=== PATIENT | male | born 1985 | race Caucasian/White ===

== ENCOUNTER 2017-09-04 11:48 | Emergency (ER) | payer BC ==
--- NOTE | 2017-09-04 13:35 | EDM.PDOC ---
ED HPI GENERAL MEDICAL PROBLEM - General Chief Complaint: Abdominal Pain Stated Complaint: STOMACH PAINS Time Seen by Provider: 09/04/17 12:35 Source of Information: Reports: Patient, Family History Limitations: Reports: No Limitations - History of Present Illness INITIAL COMMENTS - FREE TEXT/NARRATIVE: pt arrived with pain in left abdoman and into the left scrotal area. Onset: Today, Sudden Duration: Hour(s): Location: Reports: Abdomen, Other ( left scrotum) Associated Symptoms: Reports: No Other Symptoms Left Lower Abdomen Pain Score (Numeric/FACES): 6 - Related Data Allergies Allergy/AdvReac Type Severity Reaction Status Date / Time cephalexin [From Keflex] Allergy Anaphylactic Verified 09/04/17 12:43 Shock Penicillins Allergy Cannot Verified 09/04/17 12:43 Remember Past Medical History Genitourinary History: Reports: Renal Calculus - Infectious Disease History Infectious Disease History: Reports: Chicken Pox - Past Surgical History Male Surgical History: Reports: Vasectomy, Other (See Below) Other Male Surgeries/Procedures: ercp Musculoskeletal Surgical History: Reports: Arthroscopic Knee, Other (See Below) Other Musculoskeletal Surgeries/Procedures:: hand surgery, shoulder injury Social & Family History - Tobacco Use Smoking Status *Q: Current Every Day Smoker Years of Tobacco use: 15 Packs/Tins Daily: 0.5 - Caffeine Use Caffeine Use: Reports: None - Alcohol Use Days Per Week of Alcohol Use: 1 Number of Drinks Per Day: 3 Total Drinks Per Week: 3 - Recreational Drug Use Recreational Drug Use: No ED ROS GENERAL - Review of Systems Review Of Systems: See Below Constitutional: Reports: No Symptoms HEENT: Reports: No Symptoms Respiratory: Reports: No Symptoms Cardiovascular: Reports: No Symptoms Endocrine: Reports: No Symptoms GI/Abdominal: Reports: Other ( left lower abdoman and left scrotum. ) : Reports: Other ( left scrotal pain. ) Musculoskeletal: Reports: No Symptoms Skin: Reports: No Symptoms Neurological: Reports: No Symptoms Psychiatric: Reports: Anxiety ED EXAM, GI/ABD - Physical Exam Exam: See Below Text/Narrative:: pt arrived with severe pin in the left lower abdoman and down into the testicles. Exam Limited By: No Limitations General Appearance: Alert, Anxious, Moderate Distress Eyes: Bilateral: Normal Appearance, EOMI Ears: Normal TMs Nose: Normal Inspection Throat/Mouth: Normal Inspection Head: Atraumatic Neck: Normal Inspection Respiratory/Chest: No Respiratory Distress Cardiovascular: Regular Rate, Rhythm, Tachycardia GI/Abdominal Exam: Other (pt is tender in the left suprapupic area and this extends to the left testicle. ) (Male) Exam: Other ( pain in the left testicle. ) Rectal (Males) Exam: Deferred Course - Vital Signs Last Recorded V/S: Last Vital Signs Temp 35.9 C 09/04/17 12:27 Pulse 76 09/04/17 12:27 Resp 16 09/04/17 12:27 BP 128/73 09/04/17 12:27 Pulse Ox 97 09/04/17 12:27 - Orders/Labs/Meds Labs: Laboratory Tests 09/04/17 09/04/17 09/04/17 Range/Units 12:52 13:02 13:02 WBC 11.1 H (4.5-11.0) K/uL RBC 5.66 (4.30-5.90) M/uL Hgb 15.3 H (12.0-15.0) g/dL Hct 46.1 (40.0-54.0) % MCV 81 (80-98) fL MCH 27 (27-31) pg MCHC 33 (32-36) % Plt Count 218 (150-400) K/uL Neut % (Auto) 87 H (36-66) % Lymph % (Auto) 7 L (24-44) % [place] % (Auto) 6 (2-6) % Eos % (Auto) 0 L (2-4) % Baso % (Auto) 0 (0-1) % Sodium 139 L (140-148) mmol/L Potassium 3.9 (3.6-5.2) mmol/L Chloride 105 (100-108) mmol/L Carbon Dioxide 26 (21-32) mmol/L Anion Gap 11.9 (5.0-14.0) mmol/L BUN 23 H (7-18) mg/dL Creatinine 1.2 (0.8-1.3) mg/dL Est Cr Clr Drug Dosing 98.95 mL/min Estimated GFR (MDRD) > 60 (>60) Glucose 99 (74-106) mg/dL Calcium 8.8 (8.5-10.1) mg/dL Total Bilirubin 0.4 (0.2-1.0) mg/dL AST 20 (15-37) U/L ALT 34 (12-78) U/L Alkaline Phosphatase 75 (46-116) U/L C-Reactive Protein 0.23 (0.0-0.3) mg/dL Total Protein 7.1 (6.4-8.2) g/dL Albumin 3.9 (3.4-5.0) g/dL Globulin 3.2 (2.3-3.5) g/dL Albumin/Globulin Ratio 1.2 (1.2-2.2) Urine Color Yellow Urine Appearance Clear Urine pH 5.0 (4.5-8.0) Ur Specific [place] 1.020 (1.008-1.030) Urine Protein Negative (NEGATIVE) mg/dL Urine Glucose (UA) Normal (NEGATIVE) mg/dL Urine Ketones Negative (NEGATIVE) mg/dL Urine Occult Blood Negative (NEGATIVE) Urine Nitrite Negative (NEGAITVE) Urine Bilirubin Negative (NEGATIVE) Urine Urobilinogen Normal (NORMAL) mg/dL Ur Leukocyte Esterase Negative (NEGATIVE) Urine RBC 0-5 (0-5) Urine WBC 0-5 (0-5) Ur Epithelial Cells Few Amorphous Sediment Not seen Urine Bacteria Few Urine Mucus Not seen - Re-Assessments/Exams Free Text/Narrative Re-Assessment/Exam: 09/04/17 16:09 us showed a normal testicle, Cat scan of the abdoman was neg. Lab work was normal. Pt was much more comfortable. The pt could have passed a very small stone. 09/10/17 18:17 Departure - Departure Time of Disposition: 16:11 Disposition: Home, Self-Care 01 Condition: Fair Clinical Impression: Left ureteral stone, Dehydration - Discharge Information Instructions: Kidney Stones, [id number], Rehydration, Adult Referrals: PCP,None [Primary Care Provider] - Forms: ED Department Discharge Care Plan Goals: push fluids, rtc if pin should become severe. torodol 10mg q6h prn for pain
--- NOTE | 2017-09-04 14:53 | US ---
Scrotum and Contents INDICATION: Pain in left abdoman and into the left scrotum. FINDINGS: The testicles are normal in size and echogenicity. There is normal color flow to each testi kamla with normal vascular waveform. Epididymides are normal in appearance. Normal sized lymph node in the left groin contains a hypoechoic central portion that is nonspecific. IMPRESSION: 1. Normal testicles bilaterally. 2. Normal-sized lymph node in left groin contains a hypoechoic central portion and is nonspecific. Re commend follow-up clinical exam.
--- NOTE | 2017-09-04 15:02 | US ---
Scrotum and Contents INDICATION: Pain in left abdoman and into the left scrotum. FINDINGS: The testicles are normal in size and echogenicity. There is normal color flow to each testicle with normal vascular waveform. Epididymides are normal in appearance. Normal sized lymph node in the left groin contains a hypoechoic central portion that is nonspecific. IMPRESSION: 1. Normal testicles bilaterally. 2. Normal-sized lymph node in left groin contains a hypoechoic central portion and is nonspecific. Recommend follow-up clinical exam.
== END 2017-09-04 16:20 | disposition home or self-care (01) ==
LOC: JP.ED 11:48
DX: N20.1 Calculus of ureter (principal); E86.0 Dehydration; F17.210 Nicotine dependence, cigarettes, uncomplicated; Z88.0 Allergy status to penicillin; Z88.1 Allergy status to other antibiotic agents
CPT/HCPCS: 36415; 74176; 76870; 76870-26; 80053; 81001; 85025; 86140; 93976; 93976-26; 99284-25

== ENCOUNTER 2020-02-20 06:34 | Day surgery (SDC) | payer BC ==
[2020-02-20] MEDS ORDERED: Sodium Chloride 0.9% 1,000 ML IV SCH (07:15)
[2020-02-20] MEDS ORDERED: Midazolam 1 MG/ML 2 ML SDV ONE (07:21)
[2020-02-20] MEDS ORDERED: fentaNYL 100 MCG/2 ML SDV ONE (07:21)
[2020-02-20] MEDS ORDERED: Propofol 200 MG/20 ML SDV ONE ×2 (07:21→07:53)
[2020-02-20] MEDS ORDERED: Lidocaine 1% 2 ML ONE (11:35)
--- NOTE | 2020-02-23 07:45 | OR ---
DATE OF PROCEDURE: 02/20/2020 SURGEON: Yang Silva MD PROCEDURE: Colonoscopy. FINDINGS: 1. Mild inflammation of hemorrhoids. 2. Diverticulosis, mild, with no evidence of diverticulitis. 3. Small polyp in descending colon, completely removed using hot snare wire. COMPLICATIONS: None. CHIEF LEGAL OFFICER: None. ANESTHESIA: MAC. PREOPERATIVE DIAGNOSIS: Rectal bleeding. POSTOPERATIVE DIAGNOSIS: Rectal bleeding. RISKS: Risks, benefits, alternatives, and limitations include, but not limited to infection, bleeding, and perforation. PROCEDURE IN DETAIL: The patient was placed in the left lateral decubitus position. The patient did have some mildly prominent hemorrhoids, which were inflamed, but not actively bleeding. The scope was introduced and advanced atraumatically to the ileocecal valve. A photo was taken. The scope was brought back through the ascending, transverse, descending colon, and retroflexed. The patient had a small polyp, which was completely removed as described above. The patient did have diverticulosis, which would be described as mild, limited to the sigmoid colon, and without evidence of diverticulitis or bleeding. No other abnormalities on retroflexion. The patient tolerated the procedure well. Yang Silva MD /[id number]
== END 2020-02-20 09:09 | disposition home or self-care (01) ==
LOC: JP.SDS 06:34
PROVIDERS: ATTEND Surgery
DX: D12.4 Benign neoplasm of descending colon (principal); K57.30 Diverticulosis of large intestine without perforation or abscess without bleeding; K64.9 Unspecified hemorrhoids
CPT/HCPCS: 45385; J2001; J2250; J2704; J3010; J7030

== ENCOUNTER 2021-07-10 16:56 | Observation (INO) | payer BC ==
--- NOTE | 2021-07-10 18:18 | EDM.PDOC ---
ED HPI GENERAL MEDICAL PROBLEM - General Chief Complaint: Cardiovascular Problem Stated Complaint: BLEEDING Time Seen by Provider: 07/10/21 17:56 Source of Information: Reports: Patient History Limitations: Reports: No Limitations - History of Present Illness INITIAL COMMENTS - FREE TEXT/NARRATIVE: Sher is a 36-year-old male presenting to the ED for evaluation of bright red blood per rectum. Patient started having some bleeding yesterday producing bright red blood and clots from his rectum. He did not have any pain. He has not had any constipation. The bleeding kind of tailed off last evening. However, this morning it started to bleed again and by this afternoon he was passing a fair amount of blood and clots. This has caused him to have to change his clothes several times and has been wearing a pad which he is saturated as well. He got up to go to the bathroom and left the trail of blood from the bed to the bathroom. He does have a history of external hemorrhoids and diverticulosis. He underwent a colonoscopy on 03/02/2020 for evaluation of rectal bleeding and was found to have diverticulosis and a polyp. He did have some inflamed hemorrhoids at the time as well but they were not the source of bleeding. It was felt that this was a diverticular bleed. The patient denies any chest pain, shortness of breath, lightheadedness or dizziness. He is not tachycardic. He is vitally stable. He denies any rectal pain. Lower Abdomen Pain Score (Numeric/FACES): 2 - Related Data Allergies Allergy/AdvReac Type Severity Reaction Status Date / Time amoxicillin Allergy Other Verified 07/10/21 17:07 cephalexin [From Keflex] Allergy Anaphylactic Verified 07/10/21 17:07 Shock Penicillins Allergy Cannot Verified 07/10/21 17:07 Remember Home Meds: Home Meds Losartan [Cozaar] 1 tab PO DAILY 07/10/21 [History] Past Medical History Cardiovascular History: Reports: Hypertension Genitourinary History: Reports: Renal Calculus Neurological History: Reports: Concussion, Migraines - Infectious Disease History Infectious Disease History: Reports: Chicken Pox, Influenza - Past Surgical History Male Surgical History: Reports: Vasectomy, Other (See Below) Other Male Surgeries/Procedures: ercp Neurological Surgical History: Reports: None Musculoskeletal Surgical History: Reports: Arthroscopic Knee, Other (See Below) Other Musculoskeletal Surgeries/Procedures:: hand surgery, shoulder injury Social & Family History - Tobacco Use Tobacco Use Status *Q: Current Every Day Tobacco User Years of Tobacco use: 15 Packs/Tins Daily: 0.5 - Caffeine Use Caffeine Use: Reports: Coffee ED ROS GENERAL - Review of Systems Review Of Systems: See Below Constitutional: Reports: No Symptoms HEENT: Reports: No Symptoms Respiratory: Reports: No Symptoms Cardiovascular: Reports: No Symptoms Endocrine: Reports: No Symptoms GI/Abdominal: Reports: Hematochezia, Other (Rectal bleeding. ). Denies: Abdominal Pain, Nausea, Vomiting : Reports: No Symptoms Musculoskeletal: Reports: No Symptoms Skin: Reports: No Symptoms Neurological: Reports: No Symptoms Psychiatric: Reports: No Symptoms Hematologic/Lymphatic: Reports: No Symptoms Immunologic: Reports: No Symptoms ED EXAM, GENERAL - Physical Exam Exam: See Below Exam Limited By: No Limitations General Appearance: Alert, No Apparent Distress Eye Exam: Bilateral Eye: PERRL Head: Atraumatic, Normocephalic Neck: Normal Inspection, Supple Respiratory/Chest: No Respiratory Distress, Lungs Clear, Normal Breath Sounds Cardiovascular: Normal Peripheral Pulses, Regular Rate, Rhythm, No Murmur Peripheral Pulses: 2+: Radial (L), Radial (R) GI/Abdominal: Normal Bowel Sounds, Soft, Non-Tender, Other (Slightly inflamed external hemorrhoids without any bleeding. Blood and clots coming from inside the rectum. The rectum is mildly tender around the external hemorrhoids, however, there is nothing on exam to point to an anal fissure.). No: Guarding, Rigid, Rebound Back Exam: Normal Inspection Extremities: Normal Inspection Neurological: Alert, Oriented, Normal Cognition, No Motor/Sensory Deficits Psychiatric: Normal Affect, Normal Mood Skin Exam: Warm, Dry, Intact, Normal Color. No: Pallor Course - Vital Signs Last Recorded V/S: Last Vital Signs Temp 36.1 C 07/11/21 13:14 Pulse 67 07/11/21 13:14 Resp 16 07/11/21 13:14 BP 105/70 07/11/21 13:14 Pulse Ox 92 L 07/11/21 13:14 - Orders/Labs/Meds Labs: Laboratory Tests 07/10/21 07/10/21 07/10/21 Range/Units 18:07 18:07 18:07 WBC 6.6 (4.5-11.0) K/uL RBC 5.71 (4.30-5.90) M/uL Hgb 15.8 H (12.0-15.0) g/dL Hct 48.1 (40.0-54.0) % MCV 84 (80-98) fL MCH 28 (27-31) pg MCHC 33 (32-36) % Plt Count 250 (150-400) K/uL Neut % (Auto) 72.8 H (36-66) % Lymph % (Auto) 16.9 L (24-44) % [place] % (Auto) 8.9 H (2-6) % Eos % (Auto) 0.8 L (2-4) % Baso % (Auto) 0.6 (0-1) % PT 10.7 (9.5-12.0) sec INR 0.98 (0.80-1.20) APTT 24.1 L (27.0-36.0) sec Sodium (140-148) mmol/L Potassium (3.6-5.2) mmol/L Chloride (100-108) mmol/L Carbon Dioxide (21-32) mmol/L Anion Gap (5.0-14.0) mmol/L BUN (7-18) mg/dL Creatinine (0.8-1.3) mg/dL Est Cr Clr Drug Dosing mL/min Estimated GFR (MDRD) (>60) Glucose (74-106) mg/dL Calcium (8.5-10.1) mg/dL Total Bilirubin (0.2-1.0) mg/dL AST (15-37) U/L ALT (12-78) U/L Alkaline Phosphatase (46-116) U/L Total Protein (6.4-8.2) g/dL Albumin (3.4-5.0) g/dL Globulin (2.3-3.5) g/dL Albumin/Globulin Ratio (1.2-2.2) SARS-CoV-2 RNA (REHAN) (NEGATIVE) Blood Type A POSITIVE Gel Antibody Screen Negative 07/10/21 07/10/21 Range/Units 18:07 18:30 WBC (4.5-11.0) K/uL RBC (4.30-5.90) M/uL Hgb (12.0-15.0) g/dL Hct (40.0-54.0) % MCV (80-98) fL MCH (27-31) pg MCHC (32-36) % Plt Count (150-400) K/uL Neut % (Auto) (36-66) % Lymph % (Auto) (24-44) % [place] % (Auto) (2-6) % Eos % (Auto) (2-4) % Baso % (Auto) (0-1) % PT (9.5-12.0) sec INR (0.80-1.20) APTT (27.0-36.0) sec Sodium 140 (140-148) mmol/L Potassium 4.3 (3.6-5.2) mmol/L Chloride 102 (100-108) mmol/L Carbon Dioxide 28 (21-32) mmol/L Anion Gap 10.1 (5.0-14.0) mmol/L BUN 18 (7-18) mg/dL Creatinine 1.3 (0.8-1.3) mg/dL Est Cr Clr Drug Dosing 87.92 mL/min Estimated GFR (MDRD) > 60 (>60) Glucose 92 (74-106) mg/dL Calcium 9.1 (8.5-10.1) mg/dL Total Bilirubin 0.3 (0.2-1.0) mg/dL AST 17 (15-37) U/L ALT 37 (12-78) U/L Alkaline Phosphatase 61 (46-116) U/L Total Protein 7.0 (6.4-8.2) g/dL Albumin 3.9 (3.4-5.0) g/dL Globulin 3.1 (2.3-3.5) g/dL Albumin/Globulin Ratio 1.3 (1.2-2.2) SARS-CoV-2 RNA (REHAN) Negative (NEGATIVE) Blood Type Gel Antibody Screen Meds: Medications Discontinued Medications Generic Name Dose Route Start Last Admin Trade Name Freq PRN Reason Stop Dose Admin Acetaminophen 650 mg 07/10/21 20:18 07/11/21 08:48 Acetaminophen 325 Mg Tab PO 650 mg Q4H PRN Administration Pain (Mild 1-3)/fever Bisacodyl 10 mg 07/10/21 20:18 07/10/21 20:40 Bisacodyl 5 Mg Tab PO 07/10/21 20:19 10 mg ONETIME ONE Administration Fentanyl Confirm 07/11/21 08:38 Fentanyl 100 Mcg/2 Ml Sdv Administered 07/11/21 08:39 Dose 100 mcg .ROUTE .STK-MED ONE Dextrose/Lactated Ringer's 1,000 mls @ 100 mls/hr 07/11/21 08:30 07/11/21 08:42 Dextrose 5%-Lactated Ringers IV 100 mls/hr ASDIRECTED JULIO Administration Lorazepam 0.5 mg 07/10/21 20:18 Lorazepam 2 Mg/Ml Sdv IVPUSH Q4H PRN Nausea/Vomiting Losartan Potassium 25 mg 07/11/21 09:00 07/11/21 08:47 Losartan 25 Mg Tab PO 25 mg DAILY JULIO Administration Midazolam HCl Confirm 07/11/21 08:38 Midazolam 1 Mg/Ml 2 Ml Sdv Administered 07/11/21 08:39 Dose 2 mg .ROUTE .STK-MED ONE Ondansetron HCl 4 mg 07/10/21 20:18 Ondansetron 4 Mg/2 Ml Sdv IV Q6H PRN Nausea/Vomiting Ondansetron HCl 4 mg 07/10/21 20:18 Ondansetron 4 Mg Tab.Dis PO Q6H PRN Nausea able to take PO Polyethylene Glycol 238 gm 07/10/21 20:18 07/10/21 20:48 Polyethylene Glycol 3350 Powder 238 Gm Bot PO 07/10/21 20:19 1 bottle ONETIME ONE Administration Propofol Confirm 07/11/21 08:38 Propofol 200 Mg/20 Ml Sdv Administered 07/11/21 08:39 Dose 200 mg .ROUTE .STK-MED ONE Propofol Confirm 07/11/21 11:35 Propofol 200 Mg/20 Ml Sdv Administered 07/11/21 11:36 Dose 200 mg .ROUTE .STK-MED ONE - Re-Assessments/Exams Free Text/Narrative Re-Assessment/Exam: 07/10/21 19:09 Reviewed the patient's labs showing a normal CBC with a leukocyte count of 6.6, hemoglobin of 15.8, hematocrit of 48.1, and a platelet count of 250,000. His PT/INR is 10.7 and 0.98. His PTT is 24.1. His comprehensive metabolic panel is normal with the exception of a creatinine of 1.3. Patient has been typed and screened. His Covid test is negative. Alyse the case with Dr. Viera who recommended admission of the patient to the medical service and he will plan on scoping him tomorrow to look for source of bleeding. This is likely a diverticular bleed. The patient remains vitally stable. I discussed the case with Dr. Medina who will arrange for his admission. Departure - Departure Time of Disposition: 19:11 Disposition: Admitted As Inpatient 65 Clinical Impression: Diverticular hemorrhage, Inflamed external hemorrhoid, History of diverticulosis Sepsis Event Note (ED) - Evaluation Sepsis Screening Result: No Definite Risk - Problem List & Annotations (1) Diverticular hemorrhage SNOMED Code(s): 491276058, 1465331682876657 Code(s): K57.31 - DVRTCLOS OF LG INT W/O PERFORATION OR ABSCESS W BLEEDING Status: Acute Priority: High (2) History of diverticulosis SNOMED Code(s): 510338241 Code(s): Z87.19 - PERSONAL HISTORY OF OTHER DISEASES OF THE DIGESTIVE SYSTEM Status: Chronic Priority: Medium (3) Inflamed external hemorrhoid SNOMED Code(s): 14388506 Code(s): K64.4 - RESIDUAL HEMORRHOIDAL SKIN TAGS Status: Acute Priority: Medium - Problem List Review Problem List Initiated/Reviewed/Updated: Yes
--- NOTE | 2021-07-10 19:56 | PCM.HP.2 ---
H&P History of Present Illness - General Date of Service: 07/10/21 Admit Problem/Dx: Admission Diagnosis/Problem Admission Diagnosis/Problem Hematochezia Source of Information: Patient, Family, Provider History Limitations: Reports: No Limitations - History of Present Illness Initial Comments - Free Text/Narative: CC: I'm bleeding from my butthole HPI: Sher presents to the emergency room today with hematochezia. He first noticed some bleeding yesterday evening with several reddish to maroon bowel movements. Bleeding did seem to stop overnight and was okay this morning. He noticed some more this afternoon followed by a fair amount of blood being passed through the rectum. He did not have any pain associated with the episodes. He did not know that he was bleeding until he felt that running down his legs on several occasions. There was enough blood to soak through his pants. He did put a pad in his under shorts to help campbell the bleeding but with limited success. He had a similar but much less intense episode about a year and a half ago and was diagnosed with diverticulosis at that time. He has not had any fevers. No recent trauma to the rectum that he reports. No history of bleeding issues. No shortness of breath, nausea. No change in bowel or bladder habits prior to the bleeding. Work-up in the emergency room has been unremarkable other than the large amount of blood being passed through the rectum. The plan is for admission to expedite endoscopy in the morning. - Related Data Allergies/Adverse Reactions: Allergies Allergy/AdvReac Type Severity Reaction Status Date / Time amoxicillin Allergy Other Verified 07/10/21 17:07 cephalexin [From Keflex] Allergy Anaphylactic Verified 07/10/21 17:07 Shock Penicillins Allergy Cannot Verified 07/10/21 17:07 Remember Home Medications: Home Meds Losartan [Cozaar] 1 tab PO DAILY 07/10/21 [History] Past Medical History Cardiovascular History: Reports: Hypertension Genitourinary History: Reports: Renal Calculus Neurological History: Reports: Concussion, Migraines - Infectious Disease History Infectious Disease History: Reports: Chicken Pox, Influenza - Past Surgical History Male Surgical History: Reports: Vasectomy, Other (See Below) Other Male Surgeries/Procedures: ercp Neurological Surgical History: Reports: None Musculoskeletal Surgical History: Reports: Arthroscopic Knee, Other (See Below) Other Musculoskeletal Surgeries/Procedures:: hand surgery, shoulder injury Social & Family History - Family History Oncologic: Reports: Colon (Aunt) - Tobacco Use Tobacco Use Status *Q: Current Every Day Tobacco User Years of Tobacco use: 15 Packs/Tins Daily: 0.5 - Caffeine Use Caffeine Use: Reports: Coffee H&P Review of Systems - Review of Systems: Review Of Systems: See Below Free Text/Narrative: A complete 12 point review of systems was obtained. Pertinent positives and negatives are noted in the history of present illness. All other systems were reviewed and were negative except as noted. Exam - Exam Exam: See Below - Vital Signs Vital Signs: Last Vital Signs Temp 36.2 C 07/10/21 17:13 Pulse 84 07/10/21 17:13 Resp 15 07/10/21 17:13 BP 132/87 07/10/21 17:13 Pulse Ox 99 07/10/21 17:13 Weight: 97.522 kg - Exam Quality Assessment: No: Supplemental Oxygen General: Alert, Oriented, Cooperative. No: Mild Distress HEENT: Conjunctiva Clear, Mucosa Moist & [place]. No: Scleral Icterus Neck: Supple, Trachea Midline Lungs: Clear to Auscultation, Normal Respiratory Effort Cardiovascular: Regular Rate, Regular Rhythm, Systolic Murmur GI/Abdominal Exam: Normal Bowel Sounds, Soft, Non-Tender, No Distention Extremities: No Pedal Edema. No: Increased Warmth Peripheral Pulses: 2+: Dorsalis Pedis (L), Dorsalis Pedis (R) Skin: Warm, Dry Neuro Extensive - Mental Status: Alert, Oriented x3, Nl Response to Commands Neuro Extensive - Motor, Sensory, Reflexes: No: Dysarthria, Abnormal Motor, Tremor Psychiatric: Alert, Normal Affect - Patient Data Lab Results Last 24 hrs: Laboratory Results - last 24 hr 07/10/21 07/10/21 07/10/21 Range/Units 18:07 18:07 18:07 WBC 6.6 (4.5-11.0) K/uL RBC 5.71 (4.30-5.90) M/uL Hgb 15.8 H (12.0-15.0) g/dL Hct 48.1 (40.0-54.0) % MCV 84 (80-98) fL MCH 28 (27-31) pg MCHC 33 (32-36) % Plt Count 250 (150-400) K/uL Neut % (Auto) 72.8 H (36-66) % Lymph % (Auto) 16.9 L (24-44) % [place] % (Auto) 8.9 H (2-6) % Eos % (Auto) 0.8 L (2-4) % Baso % (Auto) 0.6 (0-1) % PT 10.7 (9.5-12.0) sec INR 0.98 (0.80-1.20) APTT 24.1 L (27.0-36.0) sec Sodium (140-148) mmol/L Potassium (3.6-5.2) mmol/L Chloride (100-108) mmol/L Carbon Dioxide (21-32) mmol/L Anion Gap (5.0-14.0) mmol/L BUN (7-18) mg/dL Creatinine (0.8-1.3) mg/dL Est Cr Clr Drug Dosing mL/min Estimated GFR (MDRD) (>60) Glucose (74-106) mg/dL Calcium (8.5-10.1) mg/dL Total Bilirubin (0.2-1.0) mg/dL AST (15-37) U/L ALT (12-78) U/L Alkaline Phosphatase (46-116) U/L Total Protein (6.4-8.2) g/dL Albumin (3.4-5.0) g/dL Globulin (2.3-3.5) g/dL Albumin/Globulin Ratio (1.2-2.2) SARS-CoV-2 RNA (REHAN) (NEGATIVE) Blood Type A POSITIVE Gel Antibody Screen Negative 07/10/21 07/10/21 Range/Units 18:07 18:30 WBC (4.5-11.0) K/uL RBC (4.30-5.90) M/uL Hgb (12.0-15.0) g/dL Hct (40.0-54.0) % MCV (80-98) fL MCH (27-31) pg MCHC (32-36) % Plt Count (150-400) K/uL Neut % (Auto) (36-66) % Lymph % (Auto) (24-44) % [place] % (Auto) (2-6) % Eos % (Auto) (2-4) % Baso % (Auto) (0-1) % PT (9.5-12.0) sec INR (0.80-1.20) APTT (27.0-36.0) sec Sodium 140 (140-148) mmol/L Potassium 4.3 (3.6-5.2) mmol/L Chloride 102 (100-108) mmol/L Carbon Dioxide 28 (21-32) mmol/L Anion Gap 10.1 (5.0-14.0) mmol/L BUN 18 (7-18) mg/dL Creatinine 1.3 (0.8-1.3) mg/dL Est Cr Clr Drug Dosing 87.92 mL/min Estimated GFR (MDRD) > 60 (>60) Glucose 92 (74-106) mg/dL Calcium 9.1 (8.5-10.1) mg/dL Total Bilirubin 0.3 (0.2-1.0) mg/dL AST 17 (15-37) U/L ALT 37 (12-78) U/L Alkaline Phosphatase 61 (46-116) U/L Total Protein 7.0 (6.4-8.2) g/dL Albumin 3.9 (3.4-5.0) g/dL Globulin 3.1 (2.3-3.5) g/dL Albumin/Globulin Ratio 1.3 (1.2-2.2) SARS-CoV-2 RNA (REHAN) Negative (NEGATIVE) Blood Type Gel Antibody Screen Result Diagrams: 07/10/21 18:07 07/10/21 18:07 Sepsis Event Note - Evaluation Sepsis Screening Result: No Definite Risk - Focused Exam Vital Signs: Vital Signs Temp Pulse Resp BP Pulse Ox 07/10/21 17:13 36.2 C 84 15 132/87 99 *Q Meaningful Use (ADM) - VTE *Q VTE Pharmacological Contraindications *Q: Active Hemorrhage - Problem List (1) Hematochezia SNOMED Code(s): 151158256 ICD Code: K92.1 - MELENA Status: Acute Current Visit: Yes Problem List Initiated/Reviewed/Updated: Yes Orders Last 24hrs: Active Orders 24 hr Category Date Time Status Patient Status Manage Transfer [TRANSFER] Routine ADT 07/10/21 19:51 Ordered PATIENT RETYPE [BBK] Stat Lab 07/10/21 18:07 Results TYPE AND SCREEN [BBK] Stat Lab 07/10/21 18:07 Results Resuscitation Status Routine Resus Stat 07/10/21 19:52 Ordered Assessment/Plan Comment:: ASSESSMENT AND PLAN - Hematochezia-vitals stable and hemoglobin normal but patient is experiencing a significant amount of bleeding. History of both hemorrhoids and diverticulosis with bleed about 1-1/2 years ago. Ongoing bleeding even in the emergency room. Patient would benefit from expedited work-up with endoscopy. No abdominal pain or fever. Suspect diverticular bleed. -Colon prep tonight -Colonoscopy in the morning -Hemoglobin in the morning Hypertension-controlled. -Continue home med Maintenance issues - -DVT prophylaxis-patient will be ambulatory. Pharmacological contraindicated with active bleeding -GI prophylaxis-not indicated -Nutrition-clear liquids tonight, nothing by mouth after midnight -Jackson catheter-not indicated CODE STATUS -full code Admission justification -this patient will be admitted to observation for expedited work-up of hematochezia Disposition -I anticipate discharge home after the hospital stay Jose Medina M.D. - Mortality Measure Prognosis:: Good
[2021-07-10] MEDS ORDERED: Ondansetron 4 MG Tab.DIS PO PRN (20:18)
[2021-07-10] MEDS ORDERED: LORazepam 2 MG/ML SDV IVPUSH PRN (20:18)
[2021-07-10] MEDS ORDERED: Ondansetron 4 MG/2 ML SDV IV PRN (20:18)
[2021-07-10] MEDS ORDERED: Bisacodyl 5 MG Tab PO ONE (20:18)
[2021-07-10] MEDS ORDERED: Acetaminophen 325 MG Tab PO PRN (20:18)
[2021-07-10] MEDS ORDERED: Polyethylene Glycol 3350 Powder 238 GM Bot PO ONE (20:18)
[2021-07-11] MEDS ORDERED: Dextrose 5%-Lactated Ringers 1,000 ML IV SCH (08:30)
[2021-07-11] MEDS ORDERED: Midazolam 1 MG/ML 2 ML SDV ONE (08:38)
[2021-07-11] MEDS ORDERED: fentaNYL 100 MCG/2 ML SDV ONE (08:38)
[2021-07-11] MEDS ORDERED: Propofol 200 MG/20 ML SDV ONE ×2 (08:38→11:35)
[2021-07-11] MEDS ORDERED: Losartan 25 MG Tab PO SCH (09:00)
--- NOTE | 2021-07-11 13:22 | PCM.DCSUM1 ---
Discharge Summary - Hospital Course Brief History: Mr. Vásquez is a 36-year-old gentleman who was admitted through the emergency department for further evaluation and management of lower GI bleed. - Discharge Data Discharge Date: 07/11/21 Discharge Disposition: Home, Self-Care 01 Condition: Stable - Referral to Home Health Primary Care Physician: PCP None - Discharge Diagnosis/Problem(s) (1) Hematochezia SNOMED Code(s): 671445475 ICD Code: K92.1 - MELENA Status: Acute Current Visit: Yes (2) Diverticulosis of colon with hemorrhage SNOMED Code(s): 354775251, 002101353 ICD Code: K57.31 - DVRTCLOS OF LG INT W/O PERFORATION OR ABSCESS W BLEEDING Status: Acute Current Visit: Yes - Patient Summary/Data Consults: Consultations 07/10/21 20:18 Consult to Physician [CONS] Routine Consulting Provider: Russell Viera Courtesy Call Completed to Consulting Physician: Yes Reason for Consult: hematochezia Person Notified: DURHAM Date Notified: 07/10/21 Special Instructions: will scope in am Hospital Course: Mr. Vásquez presented to the emergency room with hematochezia. He first noticed some bleeding on the evening prior to admission with several reddish to maroon bowel movements. Bleeding did seem to stop overnight and was okay this morning. He noticed some more this afternoon followed by a fair amount of blood being passed through the rectum. He did not have any pain associated with the episodes. He did not know that he was bleeding until he felt that running down his legs on several occasions. There was enough blood to soak through his pants. He did put a pad in his under shorts to help campbell the bleeding but with limited success. He had a similar but much less intense episode about a year and a half ago and was diagnosed with diverticulosis at that time. He has not had any fevers. No recent trauma to the rectum that he reports. Work-up in the emergency room has been unremarkable other than the large amount of blood being passed through the rectum. He was admitted to the hospital and kept n.p.o. for for surgical consult and colonoscopy in the morning. He did receive IV fluids for hydration and serial hemoglobin levels which only showed a mild drop by the following morning. Colonoscopy prep was performed during the night. There was no further evidence of active bleeding throughout the rest of his hospital stay. Colonoscopy was performed on the morning after admission. Colonoscopy did document diverticulosis but no evidence of active bleeding or blood within the colon. It was felt likely that his bleeding had been diverticular in nature. We discussed findings, he will follow-up with his primary care provider and he is going to consider follow-up appointment with Dr. Viera for possible left-sided colon resection. Activity will be as tolerated and he will be on a soft low residue diet for the next 2 weeks. He will return to the emergency department if he notes any further evidence of active bleeding. - Patient Instructions Diet: GI Soft/Low Residue/Low Fiber Activity: As Tolerated Other/Special Instructions: Please schedule follow-up appointment with primary care provider within 1 week - Discharge Plan *PRESCRIPTION DRUG MONITORING PROGRAM REVIEWED*: Not Applicable *COPY OF PRESCRIPTION DRUG MONITORING REPORT IN PATIENT APOORVA: Not Applicable Home Medications: Home Meds Losartan [Cozaar] 1 tab PO DAILY 07/10/21 [History] - Discharge Summary/Plan Comment DC Time >30 min.: No Total # of Minutes for Discharge Time: 20 - Patient Data Vitals - Most Recent: Last Vital Signs Temp 96.8 F L 07/11/21 12:22 Pulse 69 07/11/21 12:45 Resp 16 07/11/21 12:45 BP 111/63 07/11/21 12:45 Pulse Ox 94 L 07/11/21 12:45 Weight - Most Recent: 215 lb 12.792 oz I&O - Last 24 hours: Intake & Output 07/10/21 07/11/21 07/11/21 22:59 06:59 14:59 Intake Total 1250 Balance 1250 Lab Results - Last 24 hrs: Laboratory Results - last 24 hr 07/10/21 07/10/21 07/10/21 Range/Units 18:07 18:07 18:07 WBC 6.6 (4.5-11.0) K/uL RBC 5.71 (4.30-5.90) M/uL Hgb 15.8 H (12.0-15.0) g/dL Hct 48.1 (40.0-54.0) % MCV 84 (80-98) fL MCH 28 (27-31) pg MCHC 33 (32-36) % Plt Count 250 (150-400) K/uL Neut % (Auto) 72.8 H (36-66) % Lymph % (Auto) 16.9 L (24-44) % [place] % (Auto) 8.9 H (2-6) % Eos % (Auto) 0.8 L (2-4) % Baso % (Auto) 0.6 (0-1) % PT 10.7 (9.5-12.0) sec INR 0.98 (0.80-1.20) APTT 24.1 L (27.0-36.0) sec Sodium (140-148) mmol/L Potassium (3.6-5.2) mmol/L Chloride (100-108) mmol/L Carbon Dioxide (21-32) mmol/L Anion Gap (5.0-14.0) mmol/L BUN (7-18) mg/dL Creatinine (0.8-1.3) mg/dL Est Cr Clr Drug Dosing mL/min Estimated GFR (MDRD) (>60) Glucose (74-106) mg/dL Calcium (8.5-10.1) mg/dL Total Bilirubin (0.2-1.0) mg/dL AST (15-37) U/L ALT (12-78) U/L Alkaline Phosphatase (46-116) U/L Total Protein (6.4-8.2) g/dL Albumin (3.4-5.0) g/dL Globulin (2.3-3.5) g/dL Albumin/Globulin Ratio (1.2-2.2) SARS-CoV-2 RNA (REHAN) (NEGATIVE) Blood Type A POSITIVE Gel Antibody Screen Negative 07/10/21 07/10/21 07/11/21 Range/Units 18:07 18:30 04:20 WBC 6.0 (4.5-11.0) K/uL RBC 5.34 (4.30-5.90) M/uL Hgb 14.8 (12.0-15.0) g/dL Hct 45.3 (40.0-54.0) % MCV 85 (80-98) fL MCH 28 (27-31) pg MCHC 33 (32-36) % Plt Count 245 (150-400) K/uL Neut % (Auto) (36-66) % Lymph % (Auto) (24-44) % [place] % (Auto) (2-6) % Eos % (Auto) (2-4) % Baso % (Auto) (0-1) % PT (9.5-12.0) sec INR (0.80-1.20) APTT (27.0-36.0) sec Sodium 140 (140-148) mmol/L Potassium 4.3 (3.6-5.2) mmol/L Chloride 102 (100-108) mmol/L Carbon Dioxide 28 (21-32) mmol/L Anion Gap 10.1 (5.0-14.0) mmol/L BUN 18 (7-18) mg/dL Creatinine 1.3 (0.8-1.3) mg/dL Est Cr Clr Drug Dosing 87.92 mL/min Estimated GFR (MDRD) > 60 (>60) Glucose 92 (74-106) mg/dL Calcium 9.1 (8.5-10.1) mg/dL Total Bilirubin 0.3 (0.2-1.0) mg/dL AST 17 (15-37) U/L ALT 37 (12-78) U/L Alkaline Phosphatase 61 (46-116) U/L Total Protein 7.0 (6.4-8.2) g/dL Albumin 3.9 (3.4-5.0) g/dL Globulin 3.1 (2.3-3.5) g/dL Albumin/Globulin Ratio 1.3 (1.2-2.2) SARS-CoV-2 RNA (REHAN) Negative (NEGATIVE) Blood Type Gel Antibody Screen Med Orders - Current: Current Medications Acetaminophen (Acetaminophen 325 Mg Tab) 650 mg PO Q4H PRN PRN Reason: Pain (Mild 1-3)/fever Last Admin: 07/11/21 08:48 Dose: 650 mg Documented by: Dextrose/Lactated Ringer's (Dextrose 5%-Lactated Ringers) 1,000 mls @ 100 mls/hr IV ASDIRECTED [facility] Last Admin: 07/11/21 08:42 Dose: 100 mls/hr Documented by: Lorazepam (Lorazepam 2 Mg/Ml Sdv) 0.5 mg IVPUSH Q4H PRN PRN Reason: Nausea/Vomiting Losartan Potassium (Losartan 25 Mg Tab) 25 mg PO DAILY [facility] Last Admin: 07/11/21 08:47 Dose: 25 mg Documented by: Ondansetron HCl (Ondansetron 4 Mg/2 Ml Sdv) 4 mg IV Q6H PRN PRN Reason: Nausea/Vomiting Ondansetron HCl (Ondansetron 4 Mg Tab.Dis) 4 mg PO Q6H PRN PRN Reason: Nausea able to take PO Discontinued Medications Bisacodyl (Bisacodyl 5 Mg Tab) 10 mg PO ONETIME ONE Stop: 07/10/21 20:19 Last Admin: 07/10/21 20:40 Dose: 10 mg Documented by: Fentanyl (Fentanyl 100 Mcg/2 Ml Sdv) Confirm Administered Dose 100 mcg .ROUTE .STK-MED ONE Stop: 07/11/21 08:39 Midazolam HCl (Midazolam 1 Mg/Ml 2 Ml Sdv) Confirm Administered Dose 2 mg .ROUTE .STK-MED ONE Stop: 07/11/21 08:39 Polyethylene Glycol (Polyethylene Glycol 3350 Powder 238 Gm Bot) 238 gm PO ONETIME ONE Stop: 07/10/21 20:19 Last Admin: 07/10/21 20:48 Dose: 1 bottle Documented by: Propofol (Propofol 200 Mg/20 Ml Sdv) Confirm Administered Dose 200 mg .ROUTE .STK-MED ONE Stop: 07/11/21 08:39 Propofol (Propofol 200 Mg/20 Ml Sdv) Confirm Administered Dose 200 mg .ROUTE .STK-MED ONE Stop: 07/11/21 11:36 - Exam General: Reports: Alert, Oriented, Cooperative, No Acute Distress Lungs: Reports: Clear to Auscultation, Normal Respiratory Effort Cardiovascular: Reports: Regular Rate, Regular Rhythm, No Murmurs GI/Abdominal Exam: Soft, Non-Tender, No Organomegaly, No Distention Extremities: Non-Tender, No Pedal Edema *Q Meaningful Use (DIS) - VTE *Q VTE Pharmacological Contraindications *Q: Active Hemorrhage
--- NOTE | 2021-07-11 14:01 | PN ---
DATE OF SERVICE: 07/11/2021 The patient was admitted overnight with lower GI bleeding. He has had diverticulosis diagnosed in the past and overall clinical appearance was possibly that of diverticular bleed. His hemoglobin on admission was 15.8 and presently is 14.8 which GI bleed with that relatively small amount drop in hemoglobin. He has been hemodynamically stable. The plan will be to proceed with a colonoscopy this morning. Did tolerate the prep overnight and the appears to have largely dissipated. This colonoscopy will be undertaken later on today. Potential risks including bleeding and perforation were discussed and the patient wishes to proceed. Russell Viera MD /[id number]
--- NOTE | 2021-07-20 14:03 | OR ---
DATE OF PROCEDURE: 07/11/2021 SURGEON: Russell Viera MD PREOPERATIVE DIAGNOSIS: Recurrent rectal bleeding. POSTOPERATIVE DIAGNOSIS: Left colonic diverticulosis likely accounting for recurrent rectal bleeding (no blood or bleeding seen on present exam). OPERATIVE PROCEDURE: Flexible colonoscopy. ANESTHESIA: IV sedation. INDICATION FOR PROCEDURE: The patient now presents with rectal bleeding. He had this roughly a year ago and it was felt at that time on our colonoscopic examination to have the bleeding from diverticular disease. The bleeding appears to have stopped, and he is undergoing a successful bowel prep. Plan is to proceed with a flexible colonoscopy with biopsies as indicated. Potential risks including bleeding and perforation were discussed and the patient wishes to proceed. DETAILS OF PROCEDURE: The patient was taken to the operating room and placed in a left lateral decubitus position. IV sedation was administered after which the initial digital rectal exam was performed and was unremarkable. Colonoscope was then passed to the level of the rectum with retroflexion revealing uncomplicated hemorrhoidal columns. The scope was eventually passed to the cecum. The patient was noted to have no blood or bleeding present during the exam. The patient did have a moderate amount of left colonic diverticulosis. No diverticular disease could be seen above the descending colon and otherwise there were no areas of colitis, polyps, or other signs of neoplasia. The scope was then withdrawn and the procedure then concluded. One would assume based on the clinical history as well as the endoscopic findings that the patient's bleeding this hospitalization likewise is coming from the left colonic diverticula. Russell Viera MD /[id number]
== END 2021-07-11 14:25 | disposition home or self-care (01) ==
LOC: JP.ED 16:56 → JP.MS 19:51
PROVIDERS: ADMIT Internal Medicine; ATTEND Internal Medicine
DX: K57.31 Diverticulosis of large intestine without perforation or abscess with bleeding (principal); K64.9 Unspecified hemorrhoids; F17.210 Nicotine dependence, cigarettes, uncomplicated; I10 Essential (primary) hypertension; Z20.822 Contact with and (suspected) exposure to COVID-19; Z88.0 Allergy status to penicillin; Z88.1 Allergy status to other antibiotic agents; Z87.19 Personal history of other diseases of the digestive system
CPT/HCPCS: 36415; 80053; 85025; 85027; 85610; 85730; 86850; 86900; 86901; A9270-GY; J2250; J2704; J3010; J7121; U0002